=== PATIENT | female | born 1995 | race Caucasian/White ===

== ENCOUNTER 2016-11-01 20:19 | Emergency (ER) | payer MEDICAID ==
[~2016-11-01] VITALS: Ht 157.5 cm; Wt 67.3 kg
[~2016-11-01 20:19] MED LIST: ALPR1TAB2 PO; FLUO20CA19 PO; IBUP200C5 PO; LITH300T30 PO; LURA60TA PO
[2016-11-01 20:22] VITALS: BP 123/81
[2016-11-01] MEDS ORDERED: DIPH,PERTUSS(ACELL),TET VAC/PF 0.5 ML IM-VACC ONE ×2 (21:17→21:30)
== END 2016-11-01 22:07 | disposition home or self-care (01) ==
LOC: ED 22:01
DX: S80.01XA Contusion of right knee, initial encounter (principal); W06.XXXA Fall from bed, initial encounter; Y93.89 Activity, other specified; Y99.8 Other external cause status; Y92.89 Other specified places as the place of occurrence of the external cause
CPT/HCPCS: 90471; 90715

== ENCOUNTER 2016-11-08 02:41 | Emergency (ER) | payer MEDICAID ==
[~2016-11-08] VITALS: Ht 160 cm; Wt 71.2 kg
[2016-11-08] MEDS ORDERED: DIPHENHYDRAMINE 25 MG CAPSULE PO ONE (03:30)
[2016-11-08] MEDS ORDERED: DEXAMETHASONE 4 MG TABLET PO ONE (03:30)
[2016-11-08] MEDS ORDERED: DIPHENHYDRAMINE 25 MG CAPSULE ONE (03:33)
[2016-11-08] MEDS ORDERED: DEXAMETHASONE 4 MG TABLET ONE (03:33)
[2016-11-08 05:09] VITALS: BP 96/62
== END 2016-11-08 05:10 | disposition home or self-care (01) ==
LOC: ED 03:11
DX: J02.9 Acute pharyngitis, unspecified (principal); F17.200 Nicotine dependence, unspecified, uncomplicated; F90.9 Attention-deficit hyperactivity disorder, unspecified type
CPT/HCPCS: 99283; Q0163

== ENCOUNTER 2016-11-12 14:16 | Emergency (ER) | payer MEDICAID ==
[~2016-11-12] VITALS: Ht 157.5 cm; Wt 72.7 kg
[2016-11-12] MEDS ORDERED: ONDANSETRON ODT 4 MG PO ONE (15:30)
[2016-11-12 15:33] LABS: HEMATOCRIT 45.8 % (34.6-47.8); HEMOGLOBIN 15.3 g/dL (11.7-16.4); WHITE BLOOD COUNT 10.9 x10^3/uL (4.5-13.2)
[2016-11-12 15:33] LABS: PATH.CAST-FLAG NOT PRESENT; SPERM-FLAG NOT PRESENT; SRC-FLAG NOT PRESENT; XTAL-FLAG NOT PRESENT; YLC-FLAG NOT PRESENT
[2016-11-12 15:49] LABS: BLOOD UREA NITROGEN 10 mg/dL (7-18)
[2016-11-12] MEDS ORDERED: ONDANSETRON ODT 4 MG ONE (16:34)
[2016-11-12] MEDS ORDERED: KETOROLAC 30 MG/1 ML ONE (16:52)
[2016-11-12] MEDS ORDERED: DIPHENHYDRAMINE 50 MG/ML, 1ML ONE (16:53)
[2016-11-12] MEDS ORDERED: METOCLOPRAMIDE 5 MG/ML, 2ML ONE (16:53)
[2016-11-12] MEDS ORDERED: KETOROLAC 30 MG/1 ML IVPush ONE (17:00)
[2016-11-12] MEDS ORDERED: METOCLOPRAMIDE 5 MG/ML, 2ML IVPush ONE (17:00)
[2016-11-12] MEDS ORDERED: DIPHENHYDRAMINE 50 MG/ML, 1ML IVPush ONE (17:00)
[2016-11-12] MEDS ORDERED: SODIUM CHLORIDE FLUSH 10ML SYR IVF ONE (17:00)
[2016-11-12] MEDS ORDERED: SODIUM CHLORIDE 0.9% 1,000ML IVBOLUS ONE (17:00)
[2016-11-12 18:31] VITALS: BP 112/60
== END 2016-11-12 19:25 | disposition home or self-care (01) ==
LOC: ED 16:50
DX: G43.901 Migraine, unspecified, not intractable, with status migrainosus (principal); F90.9 Attention-deficit hyperactivity disorder, unspecified type
CPT/HCPCS: 36415; 80048; 81001; 82040; 84703; 85025; 87086; 96361; 96374; 96375; 99285; J1200; J1885; J2765; J7030; Q0162

== ENCOUNTER 2016-11-15 19:44 | Emergency (ER) | payer MEDICAID ==
[~2016-11-15] VITALS: Ht 157.5 cm; Wt 73.0 kg
[2016-11-15 20:12] VITALS: BP 107/71
[2016-11-15] MEDS ORDERED: DEXAMETHASONE 4 MG/ML, 1ML IM ONE (20:30)
[2016-11-15] MEDS ORDERED: DEXAMETHASONE 4 MG/ML, 5ML ONE (22:04)
[2016-11-15] MEDS ORDERED: DEXAMETHASONE 4 MG/ML, 1ML PO ONE (22:30)
== END 2016-11-15 22:11 | disposition home or self-care (01) ==
LOC: ED 22:05
DX: J02.9 Acute pharyngitis, unspecified (principal); G43.909 Migraine, unspecified, not intractable, without status migrainosus
CPT/HCPCS: 87081; 87880; 99284; J1100; 87147

== ENCOUNTER 2017-01-27 11:16 | Emergency (ER) | payer MEDICAID ==
[~2017-01-27] VITALS: Ht 157.5 cm; Wt 77.4 kg
[2017-01-27 12:26] LABS: HEMOGLOBIN 13.9 g/dL (11.7-16.4); WHITE BLOOD COUNT 8.5 x10^3/uL (4.5-13.2)
[2017-01-27 12:54] LABS: ASPARTATE AMINO TRANSFERASE 21 U/L (15-37); BLOOD UREA NITROGEN 5 mg/dL (7-18)
[2017-01-27] MEDS ORDERED: OXYcodone/APAP 5/325MG TABLET PO ONE (13:30)
[2017-01-27] MEDS ORDERED: OXYcodone/APAP 5/325MG TABLET ONE (13:34)
[2017-01-27 14:31] VITALS: BP 136/72
== END 2017-01-27 14:32 | disposition home or self-care (01) ==
LOC: ED 12:42
DX: R10.31 Right lower quadrant pain (principal); R10.30 Lower abdominal pain, unspecified; G43.909 Migraine, unspecified, not intractable, without status migrainosus; F90.9 Attention-deficit hyperactivity disorder, unspecified type
CPT/HCPCS: 36415; 80053; 81001; 83690; 84702; 85025; 87086; 99284

== ENCOUNTER 2017-01-28 15:18 | Emergency (ER) | payer MEDICAID ==
[~2017-01-28] VITALS: Ht 157.5 cm; Wt 78.8 kg
[2017-01-28 16:38] VITALS: BP 120/80
[2017-01-28 16:57] LABS: HEMATOCRIT 38.3 % (34.6-47.8); HEMOGLOBIN 13.1 g/dL (11.7-16.4)
[2017-01-28 17:05] LABS: ASPARTATE AMINO TRANSFERASE 30 U/L (15-37); BLOOD UREA NITROGEN 5 mg/dL (7-18)
== END 2017-01-28 17:45 | disposition home or self-care (01) ==
LOC: ED 16:17
DX: N10 Acute pyelonephritis (principal); F17.200 Nicotine dependence, unspecified, uncomplicated; F90.9 Attention-deficit hyperactivity disorder, unspecified type; G43.909 Migraine, unspecified, not intractable, without status migrainosus
CPT/HCPCS: 36415; 80053; 81003; 85025; 99284

== ENCOUNTER 2017-07-25 15:53 | Emergency (ER) | payer MEDICAID ==
[~2017-07-25] VITALS: Ht 157.5 cm; Wt 78.0 kg
[2017-07-25 15:55] VITALS: BP 115/71
[2017-07-25 16:33] LABS: BASOPHILS # (AUTO) 0.05 x10^3/uL (0-0.1); BASOPHILS % (AUTO) 1 % (0-1); EOSINOPHILS % (AUTO) 1 % (1-7); LYMPHOCYTES % (AUTO) 25 % (22-44); MD NO; MEAN CORPUSCULAR HEMOGLOBIN 30.1 pg (27.0-34.8); MEAN CORPUSCULAR HGB CONC 33.5 g/dL (32.4-35.8); MEAN CORPUSCULAR VOLUME 89.9 fL (80-100); MEAN PLATELET VOLUME 7.3 fL (7.4-10.4); MONOCYTES # (AUTO) 0.67 x10^3/uL (0.2-0.8); MONOCYTES % (AUTO) 7 % (2-9); NEUTROPHILS # (AUTO) 6.31 x10^3/uL (1.8-6.8); NEUTROPHILS % (AUTO) 66 % (42-75); PLATELET COUNT 346 x10^3/uL (130-400); RED BLOOD COUNT 4.48 x10^6/uL (3.82-5.3); RED CELL DISTRIBUTION WIDTH 14.1 % (9.6-15.2)
[2017-07-25 16:43] LABS: ALBUMIN 3.7 g/dL (3.4-5.0); ANION GAP 6 mmol/L (5-15); CALCIUM 8.5 mg/dL (8.5-10.1); CHLORIDE 109 mmol/L (98-107); CREATININE 0.64 mg/dL (0.55-1.02)
[2017-07-25] MEDS ORDERED: ONDANSETRON ODT 4 MG PO ONE (17:00)
[2017-07-25] MEDS ORDERED: ONDANSETRON ODT 4 MG ONE (17:01)
[2017-07-25 18:02] LABS: CULTURE INDICATED? YES; MICROSCOPIC INDICATED
== END 2017-07-25 18:43 | disposition home or self-care (01) ==
LOC: ED 18:10
DX: F41.1 Generalized anxiety disorder (principal); R55 Syncope and collapse; E86.0 Dehydration; F17.210 Nicotine dependence, cigarettes, uncomplicated; G43.909 Migraine, unspecified, not intractable, without status migrainosus; F90.9 Attention-deficit hyperactivity disorder, unspecified type
CPT/HCPCS: 36415; 80048; 81001; 81025; 82040; 85025; 87086; 87806; 93005; 99285; Q0162; G0475

== ENCOUNTER 2017-08-25 15:19 | Emergency (ER) | payer MEDICAID ==
[~2017-08-25] VITALS: Ht 157.5 cm; Wt 81.4 kg
[2017-08-25 15:24] VITALS: BP 113/76
[2017-08-25 16:00] LABS: BASOPHILS # (AUTO) 0.04 x10^3/uL (0-0.1); BASOPHILS % (AUTO) 0 % (0-1); EOSINOPHILS # (AUTO) 0.15 x10^3/uL (0-0.4); EOSINOPHILS % (AUTO) 2 % (1-7); LYMPHOCYTES # (AUTO) 2.84 x10^3/uL (1-3.4); LYMPHOCYTES % (AUTO) 31 % (22-44); MD NO; MEAN CORPUSCULAR HEMOGLOBIN 29.9 pg (27.0-34.8); MEAN CORPUSCULAR HGB CONC 33.5 g/dL (32.4-35.8); MEAN CORPUSCULAR VOLUME 89.1 fL (80-100); MEAN PLATELET VOLUME 7.8 fL (7.4-10.4); MONOCYTES # (AUTO) 0.85 x10^3/uL (0.2-0.8); MONOCYTES % (AUTO) 9 % (2-9); NEUTROPHILS % (AUTO) 57 % (42-75); PLATELET COUNT 341 x10^3/uL (130-400); RED BLOOD COUNT 4.87 x10^6/uL (3.82-5.3); RED CELL DISTRIBUTION WIDTH 13.2 % (9.6-15.2)
[2017-08-25 16:11] LABS: ALBUMIN 3.9 g/dL (3.4-5.0); ANION GAP 6 mmol/L (5-15); CALCIUM 9.1 mg/dL (8.5-10.1); CHLORIDE 109 mmol/L (98-107); CREATININE 0.87 mg/dL (0.55-1.02)
[2017-08-25 16:22] LABS: MICROSCOPIC AUTO
[2017-08-25 16:24] LABS: CULTURE INDICATED? YES
[2017-08-25 16:25] LABS: HCG UR SG 1.016 (1.003-1.030)
== END 2017-08-25 17:06 | disposition home or self-care (01) ==
LOC: ED 16:33
DX: F41.1 Generalized anxiety disorder (principal); F90.9 Attention-deficit hyperactivity disorder, unspecified type
CPT/HCPCS: 36415; 80048; 81001; 81025; 82040; 85025; 87086; 99284

== ENCOUNTER 2019-03-07 22:54 | Emergency (ER) | payer SELFPAY ==
[~2019-03-07] VITALS: Ht 167.6 cm; Wt 95.0 kg
[~2019-03-07 22:54] MED LIST changes: +IBUP-1623 PO; -IBUP200C5 PO
[2019-03-07 23:19] VITALS: BP 133/68
[2019-03-07 23:21] LABS: HCG UR SG 1.013 (1.003-1.030)
[2019-03-07 23:24] LABS: MICROSCOPIC INDICATED
--- NOTE | 2019-03-07 23:25 | NUR ---
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 Q5-10 MIN. A1. PT STATES SHE WAS SEEN OUT OF STATE IN [place] & TOLD SHE WAS ~5MONTHS PG. PT LMP 05/2018. PT DENIES ANY SPOTTING OR THAT HER WATER BROKE. BESIDE U/S BY MD SHOWS NO PG AT THIS TIME. PT AMBUALTORY TO RESTROOM FOR UA. SAMPLE OBTAINED & SENT. FAMILY AT BS. FAMILY STATES THAT PAIN STARTED D/T ARGUMENT C ROOMMATES & ARE BEING KICKED OUT OF APT TONIGHT.
[2019-03-07] MEDS ORDERED: ACETAMINOPHEN 325 MG TABLET PO ONE (23:30)
[2019-03-07 23:31] LABS: AMPHETAMINE SCREEN, URINE Negative (Negative); BARBITURATE SCREEN, URINE Negative (Negative); BENZODIAZEPINE SCREEN, URINE Negative (Negative); CANNABINOID SCREEN, URINE Negative (Negative); COCAINE SCREEN, URINE Negative (Negative); METHADONE SCREEN, URINE Negative (Negative); OPIATE SCREEN, URINE Negative (Negative)
[2019-03-07 23:32] LABS: CULTURE INDICATED? YES
== END 2019-03-07 23:50 | disposition home or self-care (01) ==
LOC: ED 23:44
DX: R10.9 Unspecified abdominal pain (principal); G43.909 Migraine, unspecified, not intractable, without status migrainosus
CPT/HCPCS: 80307; 81001; 81025; 87086; 99283

== ENCOUNTER 2019-06-22 14:01 | Emergency (ER) | payer MEDICAID ==
[~2019-06-22] VITALS: Ht 157.5 cm; Wt 93.8 kg
[2019-06-22 14:05] VITALS: BP 131/76
--- NOTE | 2019-06-22 14:27 | NUR ---
AT . NEW ORDERS RECEIVED. NO SIGNS OF DISTRESS OR DIFFICULTY BREATHING AT THIS TIME. PT ON THE PHONE TALKING WITH HER FRIEND. ICE PACK GIVEN.
[2019-06-22] MEDS ORDERED: ACETAMINOPHEN 500 MG TABLET PO ONE (14:30)
[2019-06-22] MEDS ORDERED: ACETAMINOPHEN 500 MG TABLET ONE (14:30)
--- NOTE | 2019-06-22 15:23 | NUR ---
EDUCATION GIVEN WITH DC PAPERWORK. VERBALIZED UNDERSTANDING.
== END 2019-06-22 15:24 | disposition home or self-care (01) ==
LOC: ED 15:12
DX: S00.33XA Contusion of nose, initial encounter (principal); G43.909 Migraine, unspecified, not intractable, without status migrainosus; X58.XXXA Exposure to other specified factors, initial encounter; Y93.89 Activity, other specified; Y92.830 Public park as the place of occurrence of the external cause; Y99.8 Other external cause status
CPT/HCPCS: 70160; 99283

== ENCOUNTER 2019-07-04 06:03 | Emergency (ER) | payer MEDICAID ==
[~2019-07-04] VITALS: Ht 157.5 cm; Wt 91.4 kg
[2019-07-04] MEDS ORDERED: KETOROLAC 30 MG/1 ML ONE (06:29)
[2019-07-04] MEDS ORDERED: KETOROLAC 30 MG/1 ML IM ONE (06:30)
--- NOTE | 2019-07-04 06:33 | NUR ---
PT TO THE ED WITH C/O GLF, VAGINAL BLEEDING AND PELVIC PAIN. PT IS A POOR HISTORIAN. PATIENT REPORTS SHE WAS WALKING DOWN A HILL AND FELL. REPORTS WHEN SHE FELL THAT SHE HIT A ROCK AND STARTED BLEEDING. REPORTS SHE IS UNSURE WHERE SHE WAS BLEEDING FROM. REPORTS SHE IS HAVING PELVIC PAIN AFTER FALL. LMP 1 MONTH AGO. PATIENT REPORTS RECENT METH USE. AMBULATORY WITHOUT DIFFICULTY.
--- NOTE | 2019-07-04 06:40 | NUR ---
PATIENT GIVEN TORADOL IV, LABS DRAWN, WAITING PELVIC XRAY. DENIES CURRENT NEEDS.
--- NOTE | 2019-07-04 06:50 | NUR ---
REPORT GIVE TO JEEVAN GOODE
--- NOTE | 2019-07-04 06:56 | NUR ---
BS report from Shilpa GOODE. Pt care transferred at this time.
--- NOTE | 2019-07-04 07:00 | NUR ---
Pt is resting in gurney, call light in lap, eyes open playing on phone, NAD, RESP WNL, skin color WNL warm and dry, MAEx4, VSS. Denies additional needs at this time. WCTM. Waiting for rads
--- NOTE | 2019-07-04 07:20 | NUR ---
Pt to Radiology via sherine, pt is NAD, RESP WNL, skin color WNL warm and dry, MAEx4, VSS.
[2019-07-04 08:16] VITALS: BP 136/72
--- NOTE | 2019-07-04 08:17 | NUR ---
Pt states that "something is seriously wrong with me because i am bleeding from my vagina", she states that she "had her period two weeks ago and this is not my period since it started after i fell down."Pt educated on no findings with tests that would indicate an emergency. Informed to follow up with a primary if necessary. Pt states " i want to go to the other hospital but dont want to walk. RN informed pt that we cannot provide a taxi voucher or bus pass to take her to the other hospital. Pt given clean underwear and pads. Patient given discharge instructions and they have confirmed that they understand the instructions however does not seem motived to leave, pt informed she may not stay her since she has been DC'd. Patient ambulatory with steady gait.
--- NOTE | 2019-07-04 08:30 | NUR ---
pt threw DC paperwork away on her way out of the ER. Pt NAD, RESP WNL, VSS, pt ambulated with a smooth and steady gait to the discharge desk.
== END 2019-07-04 08:31 | disposition home or self-care (01) ==
LOC: ED 06:25
DX: S70.01XA Contusion of right hip, initial encounter (principal); G43.909 Migraine, unspecified, not intractable, without status migrainosus; F17.210 Nicotine dependence, cigarettes, uncomplicated; Z72.9 Problem related to lifestyle, unspecified; W01.0XXA Fall on same level from slipping, tripping and stumbling without subsequent striking against object, initial encounter; Y93.89 Activity, other specified; Y92.89 Other specified places as the place of occurrence of the external cause; Y99.8 Other external cause status
CPT/HCPCS: 36415; 72190; 84703; 96372; 99284; J1885

== ENCOUNTER 2019-07-10 20:23 | Emergency (ER) | payer MEDICAID ==
[~2019-07-10] VITALS: Ht 157.5 cm; Wt 91.4 kg
--- NOTE | 2019-07-10 20:37 | NUR ---
ER PROVIDER AT BEDSIDE FOR EVAL.
--- NOTE | 2019-07-10 20:52 | NUR ---
UA SENT TO LAB.
[2019-07-10 21:01] LABS: MICROSCOPIC NOT IND
[2019-07-10 21:08] LABS: BASOPHILS # (AUTO) 0.05 x10^3/uL (0-0.1); BASOPHILS % (AUTO) 1 % (0-1); EOSINOPHILS # (AUTO) 0.05 x10^3/uL (0-0.4); EOSINOPHILS % (AUTO) 1 % (1-7); LYMPHOCYTES # (AUTO) 1.48 x10^3/uL (1-3.4); LYMPHOCYTES % (AUTO) 19 % (22-44); MD NO; MEAN CORPUSCULAR HEMOGLOBIN 28.1 pg (27.0-34.8); MEAN CORPUSCULAR HGB CONC 32.9 g/dL (32.4-35.8); MEAN CORPUSCULAR VOLUME 85.5 fL (80-100); MEAN PLATELET VOLUME 8.4 fL (7.4-10.4); MONOCYTES # (AUTO) 0.58 x10^3/uL (0.2-0.8); MONOCYTES % (AUTO) 7 % (2-9); NEUTROPHILS # (AUTO) 5.59 x10^3/uL (1.8-6.8); NEUTROPHILS % (AUTO) 72 % (42-75); PLATELET COUNT 360 x10^3/uL (130-400)
[2019-07-10 21:09] LABS: CULTURE INDICATED? NO
[2019-07-10 21:16] LABS: ALANINE AMINOTRANSFERASE 28 U/L (12-78); ALBUMIN 3.8 g/dL (3.4-5.0); ANION GAP 8 mmol/L (5-15); CALCIUM 8.7 mg/dL (8.5-10.1); CHLORIDE 110 mmol/L (98-107); CREATININE 0.66 mg/dL (0.55-1.02)
[2019-07-10 21:20] LABS: ALKALINE PHOSPHATASE 94 U/L (45-117); BILIRUBIN,TOTAL 0.3 mg/dL (0.2-1.0); TOTAL PROTEIN 7.7 g/dL (6.4-8.2)
[2019-07-10 22:06] VITALS: BP 128/88
[2019-07-10] MEDS ORDERED: POTASSIUM CHLORIDE 20 MEQ TAB.ER.PRT ONE (22:22)
--- NOTE | 2019-07-10 22:28 | NUR ---
MEDICATED PER MAR.
[2019-07-10] MEDS ORDERED: POTASSIUM CHLORIDE 20 MEQ TAB.ER.PRT PO ONE (22:30)
== END 2019-07-10 22:36 | disposition home or self-care (01) ==
LOC: ED 20:43
DX: S39.012A Strain of muscle, fascia and tendon of lower back, initial encounter (principal); E87.6 Hypokalemia; N93.9 Abnormal uterine and vaginal bleeding, unspecified; R10.9 Unspecified abdominal pain; G43.909 Migraine, unspecified, not intractable, without status migrainosus; W01.0XXA Fall on same level from slipping, tripping and stumbling without subsequent striking against object, initial encounter; Y93.89 Activity, other specified; Y92.89 Other specified places as the place of occurrence of the external cause; Y99.8 Other external cause status
CPT/HCPCS: 36415; 72110; 80053; 81003; 84703; 85025; 99284

== ENCOUNTER 2019-07-16 22:01 | Emergency (ER) | payer MEDICAID ==
[~2019-07-16] VITALS: Ht 157.5 cm; Wt 93.0 kg
[2019-07-16 22:20] VITALS: BP 137/78
[2019-07-16] MEDS ORDERED: IBUPROFEN 800 MG TABLET PO ONE (23:00)
[2019-07-16] MEDS ORDERED: IBUPROFEN 800 MG TABLET ONE (23:16)
--- NOTE | 2019-07-16 23:29 | NUR ---
STEPHEN WRAP APPLIED TO LEFT ANKLE. IBUPROFEN GIVEN PER EMAR. PT GIVEN CANE.
== END 2019-07-16 23:30 ==
LOC: ED 23:29
DX: S93.432A Sprain of tibiofibular ligament of left ankle, initial encounter (principal); G89.11 Acute pain due to trauma; M25.561 Pain in right knee; F17.200 Nicotine dependence, unspecified, uncomplicated; W01.0XXA Fall on same level from slipping, tripping and stumbling without subsequent striking against object, initial encounter; Y93.89 Activity, other specified; Y92.89 Other specified places as the place of occurrence of the external cause; Y99.8 Other external cause status
CPT/HCPCS: 99283

== ENCOUNTER 2019-07-17 21:44 | Emergency (ER) | payer MEDICAID ==
[~2019-07-17] VITALS: Ht 165.1 cm; Wt 95.0 kg
[2019-07-17 21:52] VITALS: BP 125/88
--- NOTE | 2019-07-17 21:57 | NUR ---
PD AT BEDSIDE FOR CASE REPORT.
--- NOTE | 2019-07-17 22:36 | NUR ---
PT TO CT.
== END 2019-07-17 23:19 | disposition home or self-care (01) ==
LOC: ED 23:00
DX: S06.0X1A Concussion with loss of consciousness of 30 minutes or less, initial encounter (principal); S16.1XXA Strain of muscle, fascia and tendon at neck level, initial encounter; M54.2 Cervicalgia; F17.200 Nicotine dependence, unspecified, uncomplicated; G43.909 Migraine, unspecified, not intractable, without status migrainosus; Y04.8XXA Assault by other bodily force, initial encounter; Y93.89 Activity, other specified; Y92.488 Other paved roadways as the place of occurrence of the external cause; Y99.8 Other external cause status
CPT/HCPCS: 70450; 72125; 99285

== ENCOUNTER 2019-08-22 14:23 | Inpatient (IN) | payer MEDICAID ==
[~2019-08-22] VITALS: Ht 160 cm; Wt 93.0 kg
--- NOTE | 2019-08-22 14:59 | NUR ---
REPORT RECIEVED FROM KAYLIN GOODE- FABIO RN
--- NOTE | 2019-08-22 16:15 | NUR ---
riley carr at bedside for evaluation
[2019-08-22] MEDS ORDERED: SODIUM CHLORIDE FLUSH 10ML SYR IVF ONE (16:30)
[2019-08-22] MEDS ORDERED: SODIUM CHLORIDE 0.9% 1,000ML IVBOLUS ONE (16:30)
[2019-08-22 16:33] LABS: BASOPHILS # (AUTO) 0.02 x10^3/uL (0-0.1); BASOPHILS % (AUTO) 0 % (0-1); EOSINOPHILS # (AUTO) 0.02 x10^3/uL (0-0.4); EOSINOPHILS % (AUTO) 0 % (1-7); LYMPHOCYTES # (AUTO) 1.31 x10^3/uL (1-3.4); LYMPHOCYTES % (AUTO) 11 % (22-44); MD NO; MEAN CORPUSCULAR HEMOGLOBIN 27.4 pg (27.0-34.8); MEAN CORPUSCULAR HGB CONC 32.8 g/dL (32.4-35.8); MEAN CORPUSCULAR VOLUME 83.3 fL (80-100); MONOCYTES # (AUTO) 0.58 x10^3/uL (0.2-0.8); MONOCYTES % (AUTO) 5 % (2-9); NEUTROPHILS # (AUTO) 9.91 x10^3/uL (1.8-6.8); NEUTROPHILS % (AUTO) 84 % (42-75); PLATELET COUNT 347 x10^3/uL (130-400); RED BLOOD COUNT 4.82 x10^6/uL (3.82-5.3); RED CELL DISTRIBUTION WIDTH 14.7 % (9.6-15.2)
[2019-08-22 16:41] LABS: ALANINE AMINOTRANSFERASE 24 U/L (12-78); ALBUMIN 3.6 g/dL (3.4-5.0); ANION GAP 9 mmol/L (5-15); CALCIUM 8.5 mg/dL (8.5-10.1); CHLORIDE 112 mmol/L (98-107)
[2019-08-22 16:43] LABS: SALICYLATE LEVEL < 1.7 mg/dL (2.8-20.0)
[2019-08-22 16:46] LABS: ALKALINE PHOSPHATASE 97 U/L (45-117); BILIRUBIN,TOTAL 0.6 mg/dL (0.2-1.0); CREATININE 0.84 mg/dL (0.55-1.02); TOTAL PROTEIN 7.4 g/dL (6.4-8.2); TROPONIN I < 0.015 ng/mL (0.000-0.045)
[2019-08-22 16:54] LABS: MICROSCOPIC INDICATED
[2019-08-22 17:11] LABS: AMPHETAMINE SCREEN, URINE Negative (Negative); BARBITURATE SCREEN, URINE Negative (Negative); BENZODIAZEPINE SCREEN, URINE Negative (Negative); CANNABINOID SCREEN, URINE Positive (Negative); COCAINE SCREEN, URINE Negative (Negative); METHADONE SCREEN, URINE Negative (Negative); OPIATE SCREEN, URINE Negative (Negative)
--- NOTE | 2019-08-22 17:23 | NUR ---
PT BACK FROM IMAGING
[2019-08-22] MEDS ORDERED: CEFTRIAXONE PMX 1GM/50ML 50 ML IVPB ONE (18:00)
[2019-08-22] MEDS ORDERED: CEFTRIAXONE PMX 1GM/50ML 50 ML ONE (18:03)
--- NOTE | 2019-08-22 18:06 | NUR ---
cultures drawn prior to abx
--- NOTE | 2019-08-22 18:44 | NUR ---
REPORT TO LOI GOODE
[2019-08-22] MEDS: CEFTRIAXONE PMX 1GM/50ML 50 ML IV SCH (19:30)
[2019-08-22 20:00] VITALS: BP 112/73
[2019-08-22] MEDS ORDERED: ONDANSETRON ODT 4 MG PO PRN (20:00)
[2019-08-22] MEDS ORDERED: BISACODYL 10 MG SUPP PR PRN (20:00)
[2019-08-22] MEDS ORDERED: POLYETHYLENE GLYCOL 17 GM PACKET PO PRN (20:00)
[2019-08-22] MEDS ORDERED: metroNIDAZOLE 500 MG TABLET PO ONE (20:15)
[2019-08-22] MEDS ORDERED: [UNRECOGNIZED DRUG - MIXTURE] IVPB ONE (21:30)
[2019-08-22] MEDS ORDERED: [UNRECOGNIZED DRUG - MIXTURE] IV ONE (21:30)
[2019-08-22] MEDS: HEPARIN 5,000 UNITS/ML, 1ML SQ SCH (21:59)
[2019-08-22] MEDS: SODIUM CHLORIDE 0.45% 1,000 ML IV SCH (22:00)
[2019-08-23 01:05] VITALS: BP 103/51
[2019-08-23] MEDS: HEPARIN 5,000 UNITS/ML, 1ML SQ SCH ×3 (05:12→21:03)
[2019-08-23 05:34] LABS: BASOPHILS # (AUTO) 0.04 x10^3/uL (0-0.1); BASOPHILS % (AUTO) 1 % (0-1); EOSINOPHILS # (AUTO) 0.18 x10^3/uL (0-0.4); EOSINOPHILS % (AUTO) 3 % (1-7); LYMPHOCYTES # (AUTO) 2.31 x10^3/uL (1-3.4); LYMPHOCYTES % (AUTO) 34 % (22-44); MD NO; MEAN CORPUSCULAR HEMOGLOBIN 27.1 pg (27.0-34.8); MEAN CORPUSCULAR HGB CONC 32.2 g/dL (32.4-35.8); MEAN CORPUSCULAR VOLUME 84.2 fL (80-100); MEAN PLATELET VOLUME 7.9 fL (7.4-10.4); MONOCYTES # (AUTO) 0.65 x10^3/uL (0.2-0.8); MONOCYTES % (AUTO) 10 % (2-9); NEUTROPHILS # (AUTO) 3.59 x10^3/uL (1.8-6.8); NEUTROPHILS % (AUTO) 53 % (42-75); PLATELET COUNT 334 x10^3/uL (130-400); RED BLOOD COUNT 4.43 x10^6/uL (3.82-5.3); RED CELL DISTRIBUTION WIDTH 15.1 % (9.6-15.2)
[2019-08-23 05:42] LABS: CHLORIDE 112 mmol/L (98-107)
[2019-08-23 05:51] LABS: ALANINE AMINOTRANSFERASE 22 U/L (12-78); ALKALINE PHOSPHATASE 85 U/L (45-117); ANION GAP 9 mmol/L (5-15); BILIRUBIN,TOTAL 0.6 mg/dL (0.2-1.0); CALCIUM 7.9 mg/dL (8.5-10.1); CREATININE 0.59 mg/dL (0.55-1.02); TOTAL PROTEIN 6.4 g/dL (6.4-8.2); TROPONIN I < 0.015 ng/mL (0.000-0.045)
[2019-08-23] MEDS: SENNA/DOCUSATE TABLET PO SCH (07:41)
[2019-08-23] MEDS: SODIUM CHLORIDE 0.45% 1,000 ML IV SCH ×2 (07:41→15:14)
[2019-08-23 07:46] VITALS: BP 104/66
[2019-08-23 12:09] VITALS: BP 106/63
[2019-08-23] MEDS: ACETAMINOPHEN 325 MG TABLET PO PRN ×2 (15:12→21:03)
[2019-08-23] MEDS: CEFTRIAXONE PMX 1GM/50ML 50 ML IV SCH (17:27)
[2019-08-23 19:11] VITALS: BP 105/70
[2019-08-24 00:37] VITALS: BP 116/79
[2019-08-24] MEDS: HEPARIN 5,000 UNITS/ML, 1ML SQ SCH (04:11)
[2019-08-24] MEDS: SODIUM CHLORIDE 0.45% 1,000 ML IV SCH (04:11)
[2019-08-24 07:07] VITALS: BP 104/69
[2019-08-24] MEDS: SENNA/DOCUSATE TABLET PO SCH (09:27)
[2019-08-24] MEDS ORDERED: CEFD300C37 PO (09:31)
== END 2019-08-24 11:25 | disposition home or self-care (01) | DRG 52 ==
LOC: ED 19:06 → EDIP 19:24 → 4WST 20:00 → DCLOUNGE 08-24 11:20
PROVIDERS: ADMIT Hospitalist; ATTEND Family Medicine
DX: G93.40 Encephalopathy, unspecified (principal); E87.8 Other disorders of electrolyte and fluid balance, not elsewhere classified; E46 Unspecified protein-calorie malnutrition; N39.0 Urinary tract infection, site not specified; A59.9 Trichomoniasis, unspecified; F12.90 Cannabis use, unspecified, uncomplicated; R00.0 Tachycardia, unspecified
CPT/HCPCS: 36415; 70450; 71045; 80053; 80307; 81001; 82140; 83605; 84484; 84703; 85025; 87040; 87086; 96361; 96374; 99285; G0378; J0696; J1644; J7030

== ENCOUNTER 2019-09-09 19:07 | Emergency (ER) | payer MEDICAID ==
[~2019-09-09] VITALS: Ht 157.5 cm; Wt 84.7 kg
[~2019-09-09 19:07] MED LIST changes: +CEFD300C37 PO
[2019-09-09] MEDS ORDERED: DIPH,PERTUSS(ACELL),TET VAC/PF 0.5 ML IM-VACC ONE ×2 (20:00→20:08)
[2019-09-09] MEDS ORDERED: LIDOCAINE-MPF 1%, 5ML INFIL ONE (20:00)
[2019-09-09] MEDS ORDERED: LIDOCAINE-MPF 1%, 5ML ONE (20:08)
--- NOTE | 2019-09-09 20:55 | NUR ---
PT IN BED, DENIES ANY CURRENT NEEDS OR CONCERNS, CALL LIGHT IN REACH.
[2019-09-09] MEDS ORDERED: NEOSPORIN OINT. PKT 1 PACKET ONE (21:24)
[2019-09-09 21:28] VITALS: BP 123/63
== END 2019-09-09 21:45 | disposition home or self-care (01) ==
LOC: ED 21:22
DX: S60.031A Contusion of right middle finger without damage to nail, initial encounter (principal); L03.011 Cellulitis of right finger; L01.01 Non-bullous impetigo; F15.10 Other stimulant abuse, uncomplicated; F11.10 Opioid abuse, uncomplicated; Z72.9 Problem related to lifestyle, unspecified; G43.909 Migraine, unspecified, not intractable, without status migrainosus; W57.XXXA Bitten or stung by nonvenomous insect and other nonvenomous arthropods, initial encounter; Y93.89 Activity, other specified; Y92.009 Unspecified place in unspecified non-institutional (private) residence as the place of occurrence of the external cause; Y99.8 Other external cause status
CPT/HCPCS: 11740; 90471; 90715; 99284

== ENCOUNTER 2019-09-12 10:19 | Emergency (ER) | payer MEDICAID ==
[~2019-09-12] VITALS: Ht 157.5 cm; Wt 84.3 kg
[2019-09-12 10:25] VITALS: BP 117/69
== END 2019-09-12 10:46 | disposition home or self-care (01) ==
LOC: ED 10:35
DX: L03.011 Cellulitis of right finger (principal); F17.200 Nicotine dependence, unspecified, uncomplicated
CPT/HCPCS: 99283

== ENCOUNTER 2019-09-22 11:49 | Emergency (ER) | payer MEDICAID ==
[~2019-09-22] VITALS: Ht 157.5 cm; Wt 85.0 kg
== END 2019-09-22 13:05 | disposition home or self-care (01) ==
LOC: ED 12:59
DX: S83.511A Sprain of anterior cruciate ligament of right knee, initial encounter (principal); L03.011 Cellulitis of right finger; W19.XXXA Unspecified fall, initial encounter; Y93.89 Activity, other specified; Y92.89 Other specified places as the place of occurrence of the external cause; Y99.8 Other external cause status
CPT/HCPCS: 99283

== ENCOUNTER 2019-09-22 18:06 | Emergency (ER) | payer MEDICAID ==
[~2019-09-22] VITALS: Ht 157.5 cm; Wt 90.0 kg
[2019-09-22 18:12] VITALS: BP 122/84
[2019-09-22] MEDS ORDERED: IBUPROFEN 600 MG TABLET PO ONE (19:30)
[2019-09-22] MEDS ORDERED: IBUPROFEN 600 MG TABLET ONE (19:35)
--- NOTE | 2019-09-22 19:42 | NUR ---
sling applied, patient tolerated it well
--- NOTE | 2019-09-22 20:06 | NUR ---
DISCHARGE PAPERWORK GIVEN TO PATIENT, PATIENT VERBALIZED UNDERSTANDING. PATIENT STEADILTY AMBULATED OUT OF ER
== END 2019-09-22 20:08 | disposition home or self-care (01) ==
LOC: ED 19:06
DX: G89.11 Acute pain due to trauma (principal); M25.521 Pain in right elbow; M25.511 Pain in right shoulder; F15.10 Other stimulant abuse, uncomplicated; R00.0 Tachycardia, unspecified; Z72.9 Problem related to lifestyle, unspecified; G43.909 Migraine, unspecified, not intractable, without status migrainosus; W18.30XA Fall on same level, unspecified, initial encounter; Y93.89 Activity, other specified; Y92.410 Unspecified street and highway as the place of occurrence of the external cause; Y99.8 Other external cause status
CPT/HCPCS: 99284

== ENCOUNTER 2019-09-25 09:28 | Emergency (ER) | payer MEDICAID ==
[~2019-09-25] VITALS: Ht 157.5 cm; Wt 86.0 kg
[2019-09-25 09:30] VITALS: BP 119/62
[2019-09-25] MEDS ORDERED: ONDANSETRON ODT 4 MG PO ONE (10:00)
[2019-09-25] MEDS ORDERED: ONDANSETRON ODT 4 MG ONE (10:01)
== END 2019-09-25 10:24 | disposition home or self-care (01) ==
LOC: ED 09:50
DX: R19.7 Diarrhea, unspecified (principal); F11.20 Opioid dependence, uncomplicated; F15.10 Other stimulant abuse, uncomplicated; F17.210 Nicotine dependence, cigarettes, uncomplicated; F17.200 Nicotine dependence, unspecified, uncomplicated; Z72.9 Problem related to lifestyle, unspecified
CPT/HCPCS: 99283; 99406; Q0162

== ENCOUNTER 2019-10-07 00:13 | Emergency (ER) | payer MEDICAID ==
[~2019-10-07] VITALS: Ht 157.5 cm; Wt 85.2 kg
[2019-10-07 00:19] VITALS: BP 134/80
--- NOTE | 2019-10-07 00:30 | NUR ---
PT TO ROOM WITH MULTI C/O ABCESSES TO ARMD AND EAR PAIN
[2019-10-07] MEDS ORDERED: LIDOCAINE-MPF 1%, 5ML ONE (00:49)
[2019-10-07] MEDS ORDERED: LIDOCAINE-MPF 1%, 5ML INFIL ONE (01:00)
== END 2019-10-07 02:18 | disposition home or self-care (01) ==
LOC: ED 02:12
DX: L02.414 Cutaneous abscess of left upper limb (principal); H92.02 Otalgia, left ear
CPT/HCPCS: 10060; 99284

== ENCOUNTER 2019-10-08 14:29 | Emergency (ER) | payer MEDICAID ==
[~2019-10-08] VITALS: Ht 157.5 cm; Wt 84.6 kg
[2019-10-08 14:49] VITALS: BP 118/52
--- NOTE | 2019-10-08 16:00 | NUR ---
WOUND ASSESSED BY PROVIDER, PACKING REMOVED AND THEN DRESSED, REVIEWED WOUND CARE AND PROVIDED WITH SUPPLIES FOR HOME WOUND CARE
[2019-10-08] MEDS ORDERED: IBUPROFEN 600 MG TABLET ONE (16:13)
[2019-10-08] MEDS ORDERED: IBUPROFEN 200 MG TABLET PO ONE (16:30)
== END 2019-10-08 16:28 | disposition home or self-care (01) ==
LOC: ED 16:24
DX: L02.413 Cutaneous abscess of right upper limb (principal); L98.9 Disorder of the skin and subcutaneous tissue, unspecified
CPT/HCPCS: 99283

== ENCOUNTER 2019-11-21 07:36 | Emergency (ER) | payer MEDICAID ==
[~2019-11-21] VITALS: Ht 157.5 cm; Wt 85.2 kg
--- NOTE | 2019-11-21 08:22 | NUR ---
PT HAS CO ABDOMINAL PAIN, NO N/V/. PT STATES " I FEEL WEAK" DENIES PROBLMES VOIDING. DENIES CP OR SOB. NOT TENDER TO PALPITATION
--- NOTE | 2019-11-21 08:35 | NUR ---
PT IN US
[2019-11-21 08:38] LABS: BASOPHILS # (AUTO) 0.05 x10^3/uL (0-0.1); BASOPHILS % (AUTO) 1 % (0-1); EOSINOPHILS # (AUTO) 0.15 x10^3/uL (0-0.4); EOSINOPHILS % (AUTO) 3 % (1-7); LYMPHOCYTES # (AUTO) 1.74 x10^3/uL (1-3.4); LYMPHOCYTES % (AUTO) 36 % (22-44); MD NO; MEAN CORPUSCULAR HEMOGLOBIN 26.8 pg (27.0-34.8); MEAN CORPUSCULAR HGB CONC 31.7 g/dL (32.4-35.8); MEAN PLATELET VOLUME 7.4 fL (7.4-10.4); MONOCYTES # (AUTO) 0.44 x10^3/uL (0.2-0.8); MONOCYTES % (AUTO) 9 % (2-9); NEUTROPHILS # (AUTO) 2.45 x10^3/uL (1.8-6.8); NEUTROPHILS % (AUTO) 51 % (42-75); PLATELET COUNT 373 x10^3/uL (130-400); RED BLOOD COUNT 4.31 x10^6/uL (3.82-5.3); RED CELL DISTRIBUTION WIDTH 15.6 % (9.6-15.2)
[2019-11-21 08:48] LABS: ALANINE AMINOTRANSFERASE 22 U/L (12-78); ALBUMIN 3.5 g/dL (3.4-5.0); ANION GAP 7 mmol/L (5-15); CALCIUM 8.7 mg/dL (8.5-10.1); CHLORIDE 110 mmol/L (98-107); CREATININE 0.62 mg/dL (0.55-1.02)
[2019-11-21 08:52] LABS: ALKALINE PHOSPHATASE 75 U/L (45-117); BILIRUBIN,TOTAL 0.3 mg/dL (0.2-1.0); TOTAL PROTEIN 6.9 g/dL (6.4-8.2)
--- NOTE | 2019-11-21 09:10 | NUR ---
BACK FROM US, KAMLESH SENT
[2019-11-21] MEDS ORDERED: MAALOX/HYOSCYAMINE/LIDOCAINE 45 ML BTL ONE (09:25)
[2019-11-21] MEDS ORDERED: MAALOX/HYOSCYAMINE/LIDOCAINE 45 ML BTL PO ONE (09:30)
[2019-11-21 09:40] LABS: MICROSCOPIC INDICATED
[2019-11-21 09:53] VITALS: BP 112/82
--- NOTE | 2019-11-21 11:04 | NUR ---
Patient/Caregiver given discharge instructions and they have confirmed that they understand the instructions. Patient ambulatory with steady gait.
== END 2019-11-21 11:07 | disposition home or self-care (01) ==
LOC: ED 08:51
DX: G89.29 Other chronic pain (principal); R10.31 Right lower quadrant pain; R10.2 Pelvic and perineal pain; G43.909 Migraine, unspecified, not intractable, without status migrainosus
CPT/HCPCS: 36415; 76830; 80053; 81001; 83690; 84703; 85025; 87086; 99284

== ENCOUNTER 2020-01-10 17:34 | Emergency (ER) | payer MEDICAID ==
[~2020-01-10] VITALS: Ht 157.5 cm; Wt 83.4 kg
[2020-01-10 18:07] VITALS: BP 113/73
--- NOTE | 2020-01-10 20:21 | NUR ---
PER REGISTRATION PT HOSSEIND DID NOT WANT TO STAY.
== END 2020-01-10 20:27 | disposition left against medical advice (07) ==
LOC: ED 20:21
DX: M25.531 Pain in right wrist (principal); M25.521 Pain in right elbow; M79.631 Pain in right forearm
CPT/HCPCS: 99284

== ENCOUNTER 2020-01-27 07:32 | Emergency (ER) | payer MEDICAID ==
[~2020-01-27] VITALS: Ht 167.6 cm; Wt 70.5 kg
[2020-01-27 08:01] VITALS: BP 107/73
--- NOTE | 2020-01-27 08:08 | NUR ---
SHE FOUND OUT HE LOST HER GRANDMA YESTERDAY AND NOW FEELS SUICIDAL. PER EMS SHE WAS SUICIDAL AND HOMICIDAL. PT CURRENTLY STATES SHE DOES NOT WANT TO HURT ANYONE RIGHT NOW. PT HAS NO CURRENT PLAN. PT HAS A HX OF SUICIDAL THOUGHTS, DEPRESSION, AND SCHIZOPHRENIA. PT PLACED IN ED ROOM, SECURED WITH SITTER OUTSIDE. PT DENIES ANY PHYSICAL COMPLAINTS AT THIS TIME. PT STATES SHE ALSO SPENT ALL WEEKEND USING CRYSTAL METH AND HEROINE.
--- NOTE | 2020-01-27 08:09 | NUR ---
PT'S BELONGINGS PLACED IN BAG AND PLACED IN LOCKER. 1 SHIRT, PANTS, SHOES, AND JACKET.
[2020-01-27 08:52] LABS: MICROSCOPIC INDICATED
[2020-01-27 08:53] LABS: AMPHETAMINE SCREEN, URINE Positive (Negative); BARBITURATE SCREEN, URINE Negative (Negative); BENZODIAZEPINE SCREEN, URINE Negative (Negative); CANNABINOID SCREEN, URINE Negative (Negative); COCAINE SCREEN, URINE Negative (Negative); METHADONE SCREEN, URINE Negative (Negative); OPIATE SCREEN, URINE Negative (Negative)
[2020-01-27 08:56] LABS: BASOPHILS % (AUTO) 1 % (0-1); EOSINOPHILS % (AUTO) 3 % (1-7); LYMPHOCYTES % (AUTO) 24 % (22-44); MEAN CORPUSCULAR HEMOGLOBIN 26.8 pg (27.0-34.8); MEAN CORPUSCULAR HGB CONC 32.5 g/dL (32.4-35.8); MEAN PLATELET VOLUME 7.3 fL (7.4-10.4); MONOCYTES % (AUTO) 9 % (2-9); NEUTROPHILS % (AUTO) 63 % (42-75); PLATELET COUNT 387 x10^3/uL (130-400); RED BLOOD COUNT 4.84 x10^6/uL (3.82-5.3)
[2020-01-27 09:01] LABS: MD NO
[2020-01-27 09:07] LABS: ANION GAP 6 mmol/L (5-15); CALCIUM 8.7 mg/dL (8.5-10.1); CHLORIDE 108 mmol/L (98-107)
[2020-01-27 09:19] LABS: CREATININE 0.69 mg/dL (0.55-1.02)
--- NOTE | 2020-01-27 09:19 | NUR ---
FAMILY BEDSIDE. RUBBER BLOCK LAYER APPROVED.
[2020-01-27 09:24] LABS: SALICYLATE LEVEL < 1.7 mg/dL (2.8-20.0)
--- NOTE | 2020-01-27 12:10 | NUR ---
PT LUNCH DELIVERED. PT FAMILY STILL BEDSIDE. PT RESTING WITH TV ON. ALL PT NEEDS MET AT THIS TIME.
[2020-01-27] MEDS ORDERED: FLUOXETINE HCL 20 MG CAPSULE PO SCH (12:30)
[2020-01-27] MEDS ORDERED: OLANZAPINE 10 MG TABLET PO SCH (12:30)
[2020-01-27] MEDS ORDERED: OLANZAPINE 10 MG TABLET ONE (12:39)
[2020-01-27] MEDS ORDERED: FLUOXETINE HCL 20 MG CAPSULE ONE (12:39)
[2020-01-27] MEDS ORDERED: TOPI100T24 PO (12:56)
[2020-01-27] MEDS ORDERED: GABA-826 PO (12:56)
--- NOTE | 2020-01-27 14:46 | NUR ---
RAPID COVID SWAB OBTAINED AND WALKED TO LAB
--- NOTE | 2020-01-27 15:53 | NUR ---
PHARMACY SLIP TUBED
[2020-01-27] MEDS ORDERED: GABAPENTIN 100 MG CAPSULE PO SCH (16:00)
--- NOTE | 2020-01-27 16:08 | NUR ---
PT GIVEN SNACKS. ALL NEEDS MET AT THIS TIME.
== END 2020-01-27 17:31 | disposition other institution (70) ==
LOC: ED 08:02
DX: R45.851 Suicidal ideations (principal); F15.10 Other stimulant abuse, uncomplicated; Z91.14 Patient's other noncompliance with medication regimen; F31.9 Bipolar disorder, unspecified; F41.1 Generalized anxiety disorder
CPT/HCPCS: 36415; 80048; 80299; 80307; 80320; 80329; 81001; 82040; 84443; 84703; 85025; 87086; 99285; G0480

== ENCOUNTER 2020-01-27 15:05 | Inpatient (IN) | payer MEDICAID ==
[~2020-01-27] VITALS: Ht 157.5 cm; Wt 77.2 kg
[~2020-01-27 15:05] MED LIST changes: +GABA-826 PO; +TOPI100T24 PO
[2020-01-27] MEDS ORDERED: BISACODYL 10 MG SUPP PR PRN (15:30)
[2020-01-27] MEDS ORDERED: DOCUSATE 100 MG CAPSULE PO PRN (15:30)
[2020-01-27] MEDS ORDERED: ONDANSETRON ODT 4 MG PO PRN (15:30)
[2020-01-27] MEDS ORDERED: POLYETHYLENE GLYCOL 17 GM PACKET PO PRN (15:30)
[2020-01-27 17:43] VITALS: BP 105/73
[2020-01-27 19:45] VITALS: BP 103/62
[2020-01-27] MEDS: GABAPENTIN 100 MG CAPSULE PO SCH (20:59)
[2020-01-28 07:19] LABS: CHOL/HDL RATIO 3.5; FREE T4 (FREE THYROXINE) 0.97 ng/dL (0.76-1.46); LDL/HDL RATIO 2.2 (0.5-3.0)
[2020-01-28 07:29] VITALS: BP 108/69
[2020-01-28] MEDS: TOPIRAMATE 100 MG TABLET PO SCH (08:42)
[2020-01-28] MEDS: GABAPENTIN 100 MG CAPSULE PO SCH ×3 (08:42→20:57)
[2020-01-28 19:53] VITALS: BP 104/69
[2020-01-28] MEDS ORDERED: BUPRENORPHINE/NALOXONE 2-0.5MG SL ONE (20:30)
[2020-01-29 07:23] VITALS: BP 96/63
[2020-01-29] MEDS: BUPRENORPHINE/NALOXONE 2-0.5MG SL SCH ×2 (08:10→21:11)
[2020-01-29] MEDS: TOPIRAMATE 100 MG TABLET PO SCH (08:10)
[2020-01-29] MEDS: GABAPENTIN 100 MG CAPSULE PO SCH ×3 (08:10→21:10)
[2020-01-29] MEDS: FLUOXETINE HCL 20 MG CAPSULE PO SCH (08:10)
[2020-01-29] MEDS: OLANZAPINE 10 MG TABLET PO SCH (08:10)
[2020-01-29] MEDS ORDERED: BUPRENORPHINE/NALOXONE 8-2MG SL SCH (09:00)
[2020-01-29 19:57] VITALS: BP_SYST 83; BP_SYST 95; BP_DIAS 46; BP_DIAS 58
[2020-01-29 21:05] VITALS: BP 89/54
[2020-01-29 21:07] VITALS: BP 89/54
[2020-01-30 07:17] VITALS: BP 91/54
[2020-01-30] MEDS: TOPIRAMATE 100 MG TABLET PO SCH (07:55)
[2020-01-30] MEDS: GABAPENTIN 100 MG CAPSULE PO SCH ×3 (07:55→21:05)
[2020-01-30] MEDS: FLUOXETINE HCL 20 MG CAPSULE PO SCH (07:55)
[2020-01-30] MEDS: OLANZAPINE 10 MG TABLET PO SCH (07:55)
[2020-01-30 19:45] VITALS: BP 101/65
[2020-01-30] MEDS ORDERED: BUPRENORPHINE/NALOXONE 2-0.5MG SL SCH (21:00)
[2020-01-31 07:20] VITALS: BP 85/60
[2020-01-31] MEDS: OLANZAPINE 10 MG TABLET PO SCH (08:25)
[2020-01-31] MEDS: FLUOXETINE HCL 20 MG CAPSULE PO SCH (08:25)
[2020-01-31] MEDS: GABAPENTIN 100 MG CAPSULE PO SCH ×3 (08:25→20:04)
[2020-01-31] MEDS: TOPIRAMATE 100 MG TABLET PO SCH (08:25)
[2020-01-31 08:54] VITALS: BP 103/68
[2020-01-31] MEDS ORDERED: BUPRENORPHINE/NALOXONE 2-0.5MG SL SCH (09:00)
[2020-01-31] MEDS: ACETAMINOPHEN 325 MG TABLET PO PRN ×2 (09:20→17:24)
[2020-01-31] MEDS ORDERED: OLAN10TA9 PO (13:28)
[2020-01-31] MEDS ORDERED: FLUO20CA23 PO (13:28)
[2020-01-31 19:53] VITALS: BP 105/67
[2020-02-01 07:22] VITALS: BP 89/54
[2020-02-01] MEDS: TOPIRAMATE 100 MG TABLET PO SCH (08:44)
[2020-02-01] MEDS: OLANZAPINE 10 MG TABLET PO SCH (08:44)
[2020-02-01] MEDS: GABAPENTIN 100 MG CAPSULE PO SCH (08:44)
[2020-02-01] MEDS: FLUOXETINE HCL 20 MG CAPSULE PO SCH (08:44)
== END 2020-02-01 10:05 | disposition home or self-care (01) | DRG 885 ==
LOC: 3E 17:16
PROVIDERS: ADMIT Psychiatry & Neurology Psychosomatic Medicine; ATTEND Psychiatry & Neurology Psychosomatic Medicine
DX: F25.0 Schizoaffective disorder, bipolar type (principal); F15.20 Other stimulant dependence, uncomplicated; R45.851 Suicidal ideations; Z20.828 Contact with and (suspected) exposure to other viral communicable diseases; G89.29 Other chronic pain; R03.1 Nonspecific low blood-pressure reading; E66.9 Obesity, unspecified; F41.9 Anxiety disorder, unspecified; G40.909 Epilepsy, unspecified, not intractable, without status epilepticus; F12.90 Cannabis use, unspecified, uncomplicated; R45.850 Homicidal ideations; Z88.8 Allergy status to other drugs, medicaments and biological substances; Z79.899 Other long term (current) drug therapy; Z87.440 Personal history of urinary (tract) infections; Z56.0 Unemployment, unspecified; Z68.31 Body mass index [BMI] 31.0-31.9, adult; Z79.891 Long term (current) use of opiate analgesic; Z79.01 Long term (current) use of anticoagulants; Z59.0 Homelessness
CPT/HCPCS: 36415; 87806; J0572; 71045; 80061; 84439; 84443; 86803; 87426; 93005; G0475

== ENCOUNTER 2020-05-21 11:44 | Emergency (ER) | payer MEDICAID ==
[~2020-05-21] VITALS: Ht 157.5 cm; Wt 86.0 kg
[~2020-05-21 11:44] MED LIST changes: +FLUO20CA23 PO; +OLAN10TA9 PO
[2020-05-21] MEDS ORDERED: DIPH,PERTUSS(ACELL),TET VAC/PF 0.5 ML IM-VACC ONE (13:00)
--- NOTE | 2020-05-21 13:38 | NUR ---
SCREEN MAKER: PT TO ROOM FROM LOBBY
[2020-05-21] MEDS ORDERED: NEOSPORIN OINT. PKT 1 PACKET ONE (13:47)
--- NOTE | 2020-05-21 14:36 | NUR ---
Pt's wound dressed. Pt dressing self in street clothes for d/c.
--- NOTE | 2020-05-21 14:45 | NUR ---
assumed care for dc only Patient/Caregiver given discharge instructions and they have confirmed that they understand the instructions. Patient ambulatory with steady gait.
[2020-05-21 14:46] VITALS: BP 131/61
== END 2020-05-21 14:47 | disposition home or self-care (01) ==
LOC: ED 14:20
DX: S83.91XA Sprain of unspecified site of right knee, initial encounter (principal); S93.402A Sprain of unspecified ligament of left ankle, initial encounter; G43.909 Migraine, unspecified, not intractable, without status migrainosus; X50.1XXA Overexertion from prolonged static or awkward postures, initial encounter; Y93.89 Activity, other specified; Y92.89 Other specified places as the place of occurrence of the external cause; Y99.8 Other external cause status
CPT/HCPCS: 99284

== ENCOUNTER 2020-06-24 12:29 | Inpatient (IN) | payer MEDICAID ==
[~2020-06-24] VITALS: Ht 157.5 cm; Wt 89.6 kg
[~2020-06-24 12:29] MED LIST changes: +FLUO10CA15 PO; +FLUO20TA25 PO; +GABA-827 PO; +TOPI100T39 PO; +TRAZ-96 PO
[2020-06-24] MEDS ORDERED: DIVA-61 PO (14:53)
[2020-06-24] MEDS ORDERED: OLAN5TAB9 PO (14:53)
[2020-06-25] MEDS ORDERED: POLYETHYLENE GLYCOL 17 GM PACKET PO PRN (12:00)
[2020-06-25] MEDS ORDERED: DOCUSATE 100 MG CAPSULE PO PRN (12:00)
[2020-06-25] MEDS ORDERED: ONDANSETRON ODT 4 MG PO PRN (12:00)
[2020-06-25] MEDS ORDERED: PLEASE ENTER HEIGHT AND WEIGHT MC SCH (14:00)
[2020-06-25 15:00] VITALS: BP 110/75
[2020-06-25 19:41] VITALS: BP 100/61
[2020-06-25] MEDS: DIVALPROEX 500 MG TABLET.DR PO SCH (20:45)
[2020-06-25] MEDS: ACETAMINOPHEN 325 MG TABLET PO PRN (20:53)
[2020-06-26 05:52] LABS: CHOL/HDL RATIO 3.8; LDL/HDL RATIO 2.5 (0.5-3.0)
[2020-06-26 07:00] VITALS: BP 101/62
[2020-06-26] MEDS ORDERED: NICOTINE 21 MG/24 HR PATCH.TD24 TD ONE (09:00)
[2020-06-26] MEDS ORDERED: FLUOXETINE HCL 20 MG CAPSULE PO SCH (09:00)
[2020-06-26] MEDS: NICOTINE 21 MG/24 HR PATCH.TD24 TD SCH (09:00)
[2020-06-26] MEDS: TAMSULOSIN 0.4 MG CAP.ER.24H PO SCH (09:31)
[2020-06-26] MEDS: OLANZAPINE 5 MG TABLET PO SCH (09:31)
[2020-06-26] MEDS: DIVALPROEX 500 MG TABLET.DR PO SCH (09:31)
[2020-06-26] MEDS: SERTRALINE 50MG TABLET PO SCH (12:20)
[2020-06-26] MEDS: TOPIRAMATE 100 MG TABLET PO SCH (12:20)
[2020-06-26 19:16] VITALS: BP 100/68
[2020-06-26] MEDS: GABAPENTIN 100 MG CAPSULE PO SCH (20:47)
[2020-06-26] MEDS: ACETAMINOPHEN 325 MG TABLET PO PRN (20:58)
[2020-06-27 07:06] VITALS: BP 103/68
[2020-06-27] MEDS: OLANZAPINE 5 MG TABLET PO SCH (08:52)
[2020-06-27] MEDS: GABAPENTIN 100 MG CAPSULE PO SCH ×3 (08:52→20:32)
[2020-06-27] MEDS: TAMSULOSIN 0.4 MG CAP.ER.24H PO SCH (08:52)
[2020-06-27] MEDS: TOPIRAMATE 100 MG TABLET PO SCH (08:53)
[2020-06-27] MEDS: NICOTINE 21 MG/24 HR PATCH.TD24 TD SCH (08:53)
[2020-06-27] MEDS: SERTRALINE 50MG TABLET PO SCH (08:53)
[2020-06-27 19:25] VITALS: BP_SYST 114; BP_SYST 121; BP_DIAS 77
[2020-06-27] MEDS: ACETAMINOPHEN 325 MG TABLET PO PRN (20:32)
[2020-06-28 07:55] VITALS: BP 96/64
[2020-06-28] MEDS: TOPIRAMATE 100 MG TABLET PO SCH (08:47)
[2020-06-28] MEDS: SERTRALINE 50MG TABLET PO SCH (08:48)
[2020-06-28] MEDS: NICOTINE 21 MG/24 HR PATCH.TD24 TD SCH (08:48)
[2020-06-28] MEDS: OLANZAPINE 5 MG TABLET PO SCH (08:48)
[2020-06-28] MEDS: TAMSULOSIN 0.4 MG CAP.ER.24H PO SCH (08:48)
[2020-06-28] MEDS: GABAPENTIN 100 MG CAPSULE PO SCH ×3 (08:48→20:50)
[2020-06-28 19:37] VITALS: BP 129/67
[2020-06-28] MEDS: ACETAMINOPHEN 325 MG TABLET PO PRN (20:50)
[2020-06-29 07:54] VITALS: BP 97/65
[2020-06-29] MEDS: NICOTINE 21 MG/24 HR PATCH.TD24 TD SCH (08:23)
[2020-06-29] MEDS: GABAPENTIN 100 MG CAPSULE PO SCH ×3 (08:24→20:31)
[2020-06-29] MEDS: SERTRALINE 100MG TABLET PO SCH (08:24)
[2020-06-29] MEDS: TAMSULOSIN 0.4 MG CAP.ER.24H PO SCH (08:24)
[2020-06-29] MEDS: TOPIRAMATE 100 MG TABLET PO SCH (08:24)
[2020-06-29] MEDS: OLANZAPINE 5 MG TABLET PO SCH (08:24)
[2020-06-29] MEDS: ACETAMINOPHEN 325 MG TABLET PO PRN ×2 (08:24→20:31)
[2020-06-29 19:02] VITALS: BP 103/69
[2020-06-30 07:57] VITALS: BP 105/70
[2020-06-30] MEDS: TAMSULOSIN 0.4 MG CAP.ER.24H PO SCH (08:23)
[2020-06-30] MEDS: TOPIRAMATE 100 MG TABLET PO SCH (08:23)
[2020-06-30] MEDS: SERTRALINE 100MG TABLET PO SCH (08:23)
[2020-06-30] MEDS: NICOTINE 21 MG/24 HR PATCH.TD24 TD SCH (08:23)
[2020-06-30] MEDS: OLANZAPINE 5 MG TABLET PO SCH (08:23)
[2020-06-30] MEDS: GABAPENTIN 100 MG CAPSULE PO SCH ×3 (08:23→20:18)
[2020-06-30] MEDS: ACETAMINOPHEN 325 MG TABLET PO PRN ×2 (08:23→20:18)
[2020-06-30 19:37] VITALS: BP 122/85
[2020-07-01 07:58] VITALS: BP 99/66
[2020-07-01] MEDS: SERTRALINE 100MG TABLET PO SCH (08:30)
[2020-07-01] MEDS: GABAPENTIN 100 MG CAPSULE PO SCH (08:30)
[2020-07-01] MEDS: TAMSULOSIN 0.4 MG CAP.ER.24H PO SCH (08:30)
[2020-07-01] MEDS: NICOTINE 21 MG/24 HR PATCH.TD24 TD SCH (08:30)
[2020-07-01] MEDS: OLANZAPINE 5 MG TABLET PO SCH (08:30)
[2020-07-01] MEDS: TOPIRAMATE 100 MG TABLET PO SCH (08:30)
[2020-07-01] MEDS ORDERED: SERT100T32 PO (13:50)
[2020-07-01] MEDS ORDERED: NICO-587 TD (13:50)
[2020-07-01] MEDS ORDERED: TAMS-11 PO (13:50)
[2020-07-01] MEDS ORDERED: TOPI100T24 PO (13:50)
[2020-07-01] MEDS ORDERED: OLAN5TAB9 PO (13:50)
== END 2020-07-01 14:36 | disposition home or self-care (01) | DRG 885 ==
LOC: 3E 06-25 13:39
PROVIDERS: ADMIT Psychiatry & Neurology Psychosomatic Medicine; ATTEND Psychiatry & Neurology Psychosomatic Medicine
DX: F25.0 Schizoaffective disorder, bipolar type (principal); F15.20 Other stimulant dependence, uncomplicated; R45.851 Suicidal ideations; F43.0 Acute stress reaction; E66.9 Obesity, unspecified; F17.200 Nicotine dependence, unspecified, uncomplicated; Z79.899 Other long term (current) drug therapy; Z91.5 Personal history of self-harm; Z88.8 Allergy status to other drugs, medicaments and biological substances; Z71.6 Tobacco abuse counseling; Z79.891 Long term (current) use of opiate analgesic; Z79.01 Long term (current) use of anticoagulants; Z81.8 Family history of other mental and behavioral disorders; Z68.35 Body mass index [BMI] 35.0-35.9, adult
CPT/HCPCS: 36415; 71045; 80061

== ENCOUNTER 2020-07-09 15:37 | Emergency (ER) | payer MEDICAID ==
[~2020-07-09] VITALS: Ht 157.5 cm; Wt 91.0 kg
[~2020-07-09 15:37] MED LIST changes: +DIVA-61 PO; +NICO-587 TD; +OLAN5TAB9 PO; +SERT100T32 PO; +TAMS-11 PO
--- NOTE | 2020-07-09 16:05 | NUR ---
PT C/O RIGHT ARM PAIN IN THE ANTECUBITAL AREA. PT DID IV CRYSTAL METH AND HEROINE MONDAY AND THE ARM BEGAN TO HURT AFTER THAT. PT ALSO C/O LEFT EYE PAIN WITH GREEN DISCHARGE AND BLURRY VISION. PT DENIES TRAUMA TO THE EYE.
[2020-07-09] MEDS ORDERED: SULFAMETH./TRIMETHOPRIM DS 800MG/160MG TABLET ONE (16:21)
[2020-07-09] MEDS ORDERED: LIDOCAINE-MPF 2% ,5ML ONE (16:22)
[2020-07-09] MEDS ORDERED: SULFAMETH./TRIMETHOPRIM DS 800MG/160MG TABLET PO ONE (16:30)
[2020-07-09] MEDS ORDERED: LIDOCAINE 2%, 20ML SQ ONE (16:30)
[2020-07-09 17:24] VITALS: BP 103/55
--- NOTE | 2020-07-09 17:27 | NUR ---
PT REC'VD DISCHARGE INSTRUCTION AND EDUCATION. PT HAD NO FURTHER QUESTIONS. PT AMBULATED TO DC AREA, STEADY GAIT.
== END 2020-07-09 17:42 | disposition home or self-care (01) ==
LOC: ED 17:10
DX: L02.413 Cutaneous abscess of right upper limb (principal); H10.12 Acute atopic conjunctivitis, left eye
CPT/HCPCS: 10060

== ENCOUNTER 2020-07-28 23:07 | Emergency (ER) | payer MEDICAID ==
[~2020-07-28] VITALS: Ht 157.5 cm; Wt 87.0 kg
[2020-07-28 23:26] VITALS: BP 123/78
[2020-07-28] MEDS ORDERED: LIDOCAINE-MPF 1%, 5ML INFIL ONE (23:30)
[2020-07-28] MEDS ORDERED: DIPH,PERTUSS(ACELL),TET VAC/PF 0.5 ML IM-VACC ONE (23:30)
--- NOTE | 2020-07-29 00:57 | NUR ---
TASK RN: PT. TO ROOM FROM LOBBY AT THIS TIME.
[2020-07-29] MEDS ORDERED: DIPH,PERTUSS(ACELL),TET VAC/PF 0.5 ML IM-VACC ONE (01:06)
[2020-07-29] MEDS ORDERED: LIDOCAINE-MPF 1%, 5ML ONE (01:06)
[2020-07-29] MEDS ORDERED: NEOSPORIN OINT. PKT 1 PACKET ONE (01:54)
[2020-07-29] MEDS ORDERED: IBUPROFEN 800 MG TABLET PO ONE (02:00)
[2020-07-29] MEDS ORDERED: IBUPROFEN 800 MG TABLET ONE (02:02)
== END 2020-07-29 02:26 | disposition home or self-care (01) ==
LOC: ED 07-29 01:38
DX: L03.113 Cellulitis of right upper limb (principal); L02.511 Cutaneous abscess of right hand; M79.641 Pain in right hand; F17.210 Nicotine dependence, cigarettes, uncomplicated; F12.10 Cannabis abuse, uncomplicated; F15.10 Other stimulant abuse, uncomplicated; G40.909 Epilepsy, unspecified, not intractable, without status epilepticus; G43.909 Migraine, unspecified, not intractable, without status migrainosus
CPT/HCPCS: 10060; 90471; 90715; 93005; 99406